=== PATIENT | male | born 2000 | race African-American/Black ===

== ENCOUNTER 2019-11-19 14:42 | Emergency (ER) | payer SELFPAY ==
--- NOTE | 2019-11-19 15:19 | PDOC ---
Rapid Medical Evaluation Time Seen by Provider: 11/19/19 15:16 Medical Evaluation: Allergies Allergy/AdvReac Type Severity Reaction Status Date / Time No Known Allergies Allergy Verified 11/19/19 15:14 11/19/19 15:17 Pt c/o: fell 10/24 onto metal, had xrays done, but still with complete back pain, took motrin the other day and he "slept" for 2 days Pt on brief exam: ambulatory, FROM of back, no vertebral tenderness, no cva tenderness Pt ordered for: none pt to proceed to the ED Discharge Disposition - Diagnosis Back pain, Eloped from emergency department - Discharge Dispostion Disposition: ELOPED Condition at time of disposition: Unchanged/Unknown - Referrals Referrals: Kalyani Cheney [Primary Care Provider] - - Patient Instructions - Post Discharge Activity
[2019-11-19 15:22] VITALS: BP 121/65; PULSE 86; TEMP 98; BMI 24.4
== END 2019-11-19 18:18 | disposition left against medical advice (07) ==
LOC: JERFT 14:42
DX: Z53.21 Procedure and treatment not carried out due to patient leaving prior to being seen by health care provider (principal)
CPT/HCPCS: 99281-25